=== PATIENT | male | born 1975 | race American Indian/Alaskan Native ===

== ENCOUNTER 2020-06-07 15:36 | Outpatient (CLI) | payer OTHER ==
[2020-06-07 16:42] LABS: Basophils # (Auto) 0.1 K/mm3 (0.0-0.1); Basophils % (Auto) 1.2 % (0.0-1.8); Eosinophils # (Auto) 0.4 K/mm3 (0.0-0.4); Eosinophils % (Auto) 7.9 % (0.0-4.3); Hematocrit 45.3 % (35.5-45.6); Hemoglobin 15.1 gm/dl (11.8-15.2); Lymphocytes # (Auto) 2.1 K/mm3 (1.2-5.4); Lymphocytes % (Auto) 37.2 % (13.4-35.0); Mean Corpuscular HGB Conc 33 % (32-34); Mean Corpuscular Volume 85 fl (84-94); Monocytes # (Auto) 0.4 K/mm3 (0.0-0.8); Monocytes % (Auto) 6.8 % (0.0-7.3); Platelet Count 275 K/mm3 (140-440); Red Blood Count 5.35 M/mm3 (3.65-5.03); Red Cell Distribution Width 14.1 % (13.2-15.2)
[2020-06-07 16:48] LABS: ABG Base Excess 0.4 mmol/L (-2.0-3.0); ABG HCO3 24.8 mmol/L (20.0-26.0); ABG Methemoglobin 0.6 % (0.0-1.5); ABG Oxygen Saturation 97.3 % (95.0-99.0); ABG PCO2 39.6 mm Hg; ABG PH 7.416 pH Units (7.350-7.450); ABG PO2 92.5 mm Hg (80.0-90.0)
[2020-06-07 17:05] LABS: Alanine Aminotransferase 22 units/L (7-56); Albumin 4.5 g/dL (3.9-5); BUN/Creatinine Ratio 13; Blood Urea Nitrogen 15 mg/dL (9-20); Calcium 10.2 mg/dL (8.4-10.2); Chol/HDL Ratio 3.68 %; HDL Cholesterol 58 mg/dL (40-59); Hemolysis Index 5; LDL Cholesterol,Direct 160 mg/dL (50-130)
== END 2020-06-07 15:37 | disposition home or self-care (01) ==
LOC: LAB 15:36
PROVIDERS: ATTEND Internal Medicine
DX: I10 Essential (primary) hypertension (principal); G47.33 Obstructive sleep apnea (adult) (pediatric); Z79.899 Other long term (current) drug therapy
CPT/HCPCS: 36415; 80053; 80061; 82803; 83036; 84436; 84443; 85025

== ENCOUNTER 2021-06-11 07:00 | Day surgery (SDC) | payer MEDICARE ==
[2021-06-05 10:26] LABS: Alanine Aminotransferase 21 units/L (7-56); Albumin 4.4 g/dL (3.9-5); BUN/Creatinine Ratio 8; Blood Urea Nitrogen 9 mg/dL (9-20); Calcium 9.7 mg/dL (8.4-10.2); Hemolysis Index 13
[2021-06-05 10:27] LABS: Hematocrit 49.2 % (35.5-45.6); Hemoglobin 15.4 gm/dl (11.8-15.2); Mean Corpuscular HGB Conc 31 % (32-34); Mean Corpuscular Volume 85 fl (84-94); Platelet Count 253 K/mm3 (140-440); Red Blood Count 5.77 M/mm3 (3.65-5.03); Red Cell Distribution Width 14.6 % (13.2-15.2)
[2021-06-11] MEDS ORDERED: LACTATED RINGERS 1,000 ML ONE ×2 (07:19→11:19)
--- NOTE | 2021-06-11 08:05 | Anesthesia Day of Surgery ---
Anesthesia Day of Surgery - Day of Surgery Patient Examined: Yes Patient H&P Reviewed: Yes Patient is NPO: Yes
--- NOTE | 2021-06-11 08:05 | Anesthesia Consultation ---
Anesthesia Consult and Med Hx Date of service: 06/11/21 - Airway Anesthetic Teeth Evaluation: Good ROM Head & Neck: Adequate Mental/Hyoid Distance: Adequate Mallampati Class: Class III Intubation Access Assessment: Possibly Difficult - Pre-Operative Health Status ASA Pre-Surgery Classification: ASA2 Proposed Anesthetic Plan: General - Pulmonary Hx Smoking: No Hx Asthma: No COPD: No Hx Pneumonia: No Hx Sleep Apnea: Yes (DX SLEEP APNEA WITH CPAP USE) - Cardiovascular System Hx Hypertension: Yes (X 16 YRS) Hx Angina: No - Central Nervous System Hx Neuromuscular Disorder: No Hx Back Pain: Yes Hx Psychiatric Problems: No - Gastrointestinal Hx Gastroesophageal Reflux Disease: No - Endocrine Hx Renal Disease: No Hx End Stage Renal Disease: No Hx Liver Disease: No Hx Insulin Dependent Diabetes: No Hx Non-Insulin Dependent Diabetes: Yes (diet controlled) - Hematic Hx Anemia: No - Other Systems Hx Alcohol Use: Yes (occ) Hx Substance Use: No (DENIES) Hx Cancer: No
[2021-06-11] MEDS ORDERED: GENTAMICIN 80 MG in SODIUM CHLORIDE 0.9% 100 ML IV ONE (08:16)
[2021-06-11] MEDS ORDERED: FAMOTIDINE 20 MG/2 ML INJ IV NR (09:00)
[2021-06-11] MEDS ORDERED: MIDAZOLAM 2 MG/2 ML INJ IV NR (09:00)
[2021-06-11] MEDS ORDERED: LACTATED RINGERS 1,000 ML IV SCH (09:00)
[2021-06-11] MEDS ORDERED: VANCOMYCIN/NS 1 GM/250 ML 1 GM/250 ML BAG IV NR (09:00)
[2021-06-11] MEDS ORDERED: GENTAMICIN 350 MG in SODIUM CHLORIDE 0.9% 100 ML IV NR (09:00)
[2021-06-11] MEDS ORDERED: propofoL 200 MG/20 ML VIAL IV ONE (09:04)
[2021-06-11] MEDS ORDERED: HYDROmorphone 1 MG/1 ML INJ ONE ×2 (09:04→11:58)
[2021-06-11] MEDS ORDERED: LIDOCAINE MPF (2%) 20 MG/1 ML VIAL 5 ML ONE (09:05)
[2021-06-11] MEDS ORDERED: BUPIVACAINE/PF (0.5%) 5 MG/1 ML 30 ML VIAL INFILTRATI ONE (09:31)
[2021-06-11] MEDS ORDERED: GENTAMICIN 40 MG/ML VIAL 2 ML ONE (09:31)
[2021-06-11] MEDS ORDERED: SODIUM CHLORIDE P/F VIAL 10 ML 20 ML ONE (09:31)
[2021-06-11] MEDS ORDERED: rifAMPin 600 MG VIAL ONE (09:32)
[2021-06-11] MEDS ORDERED: NEOMY 40 MG/POLYMYXIN B 200,000 UNITS/ML (GU) AMPULE IR ONE ×3 (09:32→11:26)
[2021-06-11] MEDS ORDERED: SODIUM CHLORIDE 0.9% 500 ML 500 ML ONE (09:32)
[2021-06-11] MEDS ORDERED: GENTAMICIN/NS 80 MG/100 ML 100 ML IV ONE (09:33)
[2021-06-11] MEDS ORDERED: SODIUM CHLORIDE 0.9% 50 ML ONE (09:34)
[2021-06-11] MEDS ORDERED: GLYCOPYRROLATE 0.4 MG/2 ML INJ ONE (10:57)
[2021-06-11] MEDS ORDERED: ONDANSETRON 4 MG/2 ML INJ ONE (11:21)
[2021-06-11] MEDS ORDERED: SODIUM CHLORIDE 0.9% IRR 1,500 ML BOTTLE IR ONE (11:26)
[2021-06-11] MEDS ORDERED: SODIUM CHLORIDE 0.9% P/F 10 ML VIAL INFILTRATI ONE (11:26)
[2021-06-11] MEDS ORDERED: GENTAMICIN 40 MG/ML VIAL 2 ML IV ONE (11:27)
[2021-06-11] MEDS ORDERED: SODIUM CHLORIDE 0.9% 500 ML IVPB IV ONE (11:28)
[2021-06-11] MEDS ORDERED: rifAMPin 600 MG VIAL IV ONE (11:36)
--- NOTE | 2021-06-11 11:56 | Short Stay Summary ---
Short Stay Documentation Date of service: 06/11/21 - History H&P: obtained from office - Allergies and Medications Current Medications: Allergies No Known Allergies Allergy (Verified 06/02/21 16:10) Home Medications Medication Instructions Recorded Confirmed Last Taken Type Triamter/Hctz 37.5-25 mg 1 tab PO DAILY 02/01/15 06/02/21 02/04/15 06:00 History [Maxzide-25] Cholecalciferol (Vitamin D3) 50,000 unit PO QWEEK 06/02/21 06/02/21 Unknown History [Vitamin D3 50,000UNIT CAP] Fenofibrate [Tricor] 145 mg PO QDAY 06/02/21 06/02/21 Unknown History Multivitamin/Iron/Folic Acid 1 each PO DAILY 06/02/21 06/02/21 Unknown History [Centrum Adults Tablet] Active Medications Famotidine (Famotidine 20 Mg/2 Ml Inj) 20 mg IV PREOP NR Stop: 06/11/21 20:00 Lactated Ringer's (Lactated Ringers) 1,000 mls @ 100 mls/hr IV DIRECT EMILIA Stop: 06/11/21 23:00 Vancomycin HCl (Vancomycin/Ns 1 Gm/250 Ml) 1 gm in 250 mls @ 167.007 mls/hr IV PREOP NR; Protocol Stop: 06/11/21 20:00 Gentamicin Sulfate 350 mg/ (Sodium Chloride) 108.75 mls @ 200 mls/hr IV PREOP NR Stop: 06/11/21 13:00 Midazolam HCl (Midazolam 2 Mg/2 Ml Inj) 2 mg IV PREOP NR Stop: 06/11/21 23:59 - Brief post op/procedure progress note Date of procedure: 06/11/21 Pre-op diagnosis: malfx ipp (coloplast), voluntary sterilization Post-op diagnosis: same Procedure: replacement of inflatable penile prosthesis, scrotaplasty, vasectomy Anesthesia: GETA Surgeon: SLICK ARROYO Estimated blood loss: 50-100ml Pathology: list (vas deferens, ipp device) - Hospital course Hospital course: post op info on chart pt has abx & pain meds - Disposition Condition at discharge: Stable Disposition: 01 HOME / SELF CARE / HOMELESS Short Stay Discharge Plan Follow up with: WILIAN HERRERA NP-C [Primary Care Provider] - 7 Days
[2021-06-11] MEDS: HYDROmorphone 1 MG/1 ML INJ IV PRN ×2 (12:00→12:10)
[2021-06-11] MEDS ORDERED: HYDROmorphone 1 MG/1 ML INJ IV PRN (12:03)
[2021-06-11] MEDS ORDERED: ONDANSETRON 4 MG/2 ML INJ IV PRN (12:03)
--- NOTE | 2021-06-11 12:58 | Operative Report ---
DATE OF SURGERY: 06/11/2021 PREOPERATIVE DIAGNOSES: Malfunctioning inflatable penile prosthesis (Coloplast), voluntary sterilization. POSTOPERATIVE DIAGNOSES: Malfunctioning inflatable penile prosthesis (Coloplast), voluntary sterilization, redundant scrotal skin. PROCEDURES: Explantation and reinsertion of inflatable penile prosthesis (Coloplast Titan 20 cm plus 2 cm rear tip fabric worker foreman), bilateral vasectomy, scrotoplasty. SURGEON: Nilton Harris MD ANESTHESIA: General. ESTIMATED BLOOD LOSS: Minimal. FLUIDS: Crystalloid. COMPLICATIONS: No complications. INDICATIONS: This patient is a 46-year-old gentleman, known to our service with a history of erectile dysfunction. He underwent an inflatable penile prosthesis in January 2015, has done well. He was seen in the office a month ago, pump stopped working, exam was consistent with pump leak. Also, the patient has a desire for vasectomy. He has one kid, does not want any more. Written information was given regarding vasectomy. Risks, benefits and complications were explained regarding both procedures. He agreed to proceed with surgical intervention. DESCRIPTION OF PROCEDURE: The patient was taken to the operative suite, placed in a supine position. After adequate general anesthesia, he was placed in a supine position, prepped and draped in a sterile fashion. Castle catheter was placed on the operative field. A transscrotal incision was made with Bovie. Sharp dissection was taken down to the pump. Metal [place] retractor was used for exposure. The pump was exposed. No signs of infection could be appreciated. Tubing to the left cylinder was noted to have a crack. This appeared to be the site of the leak. Anaerobic and aerobic cultures were obtained. Dissection was then taken to the corporal bodies. Corporotomies were made. Cylinders were removed. Again, no signs of infection. Anaerobic and aerobic cultures again were obtained. Measurements revealed again 22 cm. Therefore, a 20 cm Titan with 2 cm rear tip extenders will be used. Tracked the tubing to the reservoir, which was in the right external ring. The tubing to the reservoir was cut. No fluid in the reservoir. The reservoir was removed. Again, no signs of infection. The device will be sent for identification only. Copious irrigation was performed through all parts of the incision. Gloves were changed. A 125 mL reservoir was placed in the retropubic space via the right external ring and 100 mL of saline was placed. The cylinders were prepped, placed in the corporal bodies with the aid of a Jean needle and these seated well. Corporotomies were closed with 2-0 Vicryl in a running fashion. The pump was connected to the reservoir with the quick click connection system. Insufflation of the device revealed an excellent cosmetic appearance. The pump was then placed in the dependent portion of the scrotum again. The dartos layer was closed with 2-0 Vicryl in a running fashion. The pump was secured in the dependent portion of the scrotum with the aid of a pursestring suture. Skin was closed with 3-0 Vicryl in interrupted fashion. Collodion was placed as well as Xeroform gauze and a mummy wrap. The penis was 70% erect and was taped to the abdomen pointing upward. Castle catheter was left indwelling as well as mesh pants were placed. Kathryn Castaneda was at bedside entire case to assist. The patient tolerated the procedure well, was extubated and taken to the recovery room. He will go home on Bactrim and Percocet. TID: [id number] RECEIPT: [id number] [facility]
[2021-06-11] MEDS ORDERED: hydrALAZINE 20 MG/1 ML INJ ONE (13:36)
[2021-06-11] MEDS ORDERED: hydrALAZINE 20 MG/1 ML INJ IV PRN (14:00)
--- NOTE | 2021-06-11 14:23 | Post Anesthesia Evaluation ---
- Post Anesthesia Evaluation Patient Participated: Yes Airway Patent: Yes Stable Respiratory Function: Yes Nausea/Vomiting: No Temp > 96.8F: Yes Pain Manageable: Yes Adequeate Hydration: Yes Anesthesia Complications: No Block Receding Appropriately: Not Applicable Patient on Ventilator: No
[2021-06-11 18:17] VITALS: BP 146/75
== END 2021-06-11 15:15 | disposition home or self-care (01) ==
LOC: OR 07:00
PROVIDERS: ATTEND Urology
DX: T83.490A Other mechanical complication of implanted penile prosthesis, initial encounter (principal); N52.01 Erectile dysfunction due to arterial insufficiency; N50.89 Other specified disorders of the male genital organs; Z20.822 Contact with and (suspected) exposure to COVID-19; G47.33 Obstructive sleep apnea (adult) (pediatric); I10 Essential (primary) hypertension; E11.9 Type 2 diabetes mellitus without complications; Z79.899 Other long term (current) drug therapy; Z98.890 Other specified postprocedural states; Y83.8 Other surgical procedures as the cause of abnormal reaction of the patient, or of later complication, without mention of misadventure at the time of the procedure
CPT/HCPCS: 36415; 54410; 55250; 80053; 82962; 85027; 87075; 87116; 88300; 88302; 88305; C1813; J0360; J1170; J1580; J1815; J2405; J2704; J3370; J3490; J7040; J7120; U0003; 88304; J2250